=== PATIENT | male | born 1960 ===

== ENCOUNTER 2017-04-28 11:06 | Emergency (ER) | payer MEDICARE, MEDICAID ==
[2017-04-28 11:20] VITALS: BP 134/87
--- NOTE | 2017-04-28 11:58 | UC ---
Syncope/New Syncope HPI - HPI Summary HPI Summary: 56 yo male presents to [facility] after a faint Faint occurred during a paroxysm of coughing Lost postural tone and was out for 2-3 second was able to get up under his own power NO CP/SOB/PALPITATIONS he is currently on day # 4 of zithromax for bronchitis also on nebs and prednisone currently has no complaints and has not had any coughing here - History Of Current Complaint Chief Complaint: UCGeneralIllness Stated Complaint: BLACKED OUT Time Seen by Provider: 04/28/17 11:20 Hx Obtained From: Patient Onset/Duration: Sudden Onset Activity At Onset: Other - had just gotten out of his vehicle and started coughing violently Timing: Seconds - <3 Frequency: Episodes x___ - 1, Episodes Lasting ____ (in Mins/Days/Weeks/Years) - less than 3 Context: Witnessed Associated Head Trauma: No Pain Intensity: 0 Pain Scale Used: 0-10 Numeric Aggravating Factor(s): Other - occurred while coughing - Risk Factors Cardiac Risk Factors: Hypertension, Smoking, Family History Dysrhythmia Risk Factors: Age Greater Than 45 - Allergies/Home Medications Allergies/Adverse Reactions: Allergies Allergy/AdvReac Type Severity Reaction Status Date / Time No Known Allergies Allergy Verified 04/28/17 11:11 Home Medications: Home Medications Azithromycin TAB* [Zithromax TAB (Z-EDSON) 250 mg #6 tabs] 250 mg PO DAILY [History Confirmed 04/28/17] Bp Med 1 tab PO DAILY 04/28/17 [History] Cholesterol Med 1 tab PO DAILY 04/28/17 [History] Cough Medication PRN 04/28/17 [History] predniSONE TAB* [Deltasone TAB*] 1 mg PO DAILY 04/28/17 [History Confirmed 04/28] PMH/Surg Hx/FS Hx/Imm Hx Previously Healthy: Yes Endocrine History: Dyslipidemia Cardiovascular History: Hypertension Respiratory History: Bronchitis, Pneumonia - Surgical History Surgical History: None - Family History Known Family History: Positive: Cardiac Disease, Hypertension - Social History Alcohol Use: None Substance Use Type: None Smoking Status (MU): Heavy Every Day Tobacco Smoker Type: Cigarettes Amount Used/How Often: 1 pack daily Review of Systems Constitutional: Other - syncopal episode Skin: Negative Eyes: Negative ENT: Negative Respiratory: Cough Cardiovascular: Negative Gastrointestinal: Negative Genitourinary: Negative Motor: Negative Neurovascular: Negative Musculoskeletal: Negative Neurological: Negative Psychological: Negative All Other Systems Reviewed And Are Negative: Yes Physical Exam Triage Information Reviewed: Yes Appearance: Well-Appearing, No Pain Distress, Well-Nourished Vital Signs: Initial Vital Signs Temp 98.1 F 04/28/17 11:15 Pulse 66 04/28/17 11:15 Resp 18 04/28/17 11:15 BP 134/87 04/28/17 11:15 Pulse Ox 98 04/28/17 11:15 Vital Signs Reviewed: Yes Eye Exam: Normal Eyes: Positive: Conjunctiva Clear ENT: Positive: Hearing grossly normal. Negative: Nasal congestion, Nasal drainage, Tonsillar exudate, Trismus, Muffled/hoarse voice Neck: Positive: Supple, Nontender, No Lymphadenopathy Respiratory: Positive: Lungs clear, Normal breath sounds, No respiratory distress, No accessory muscle use Cardiovascular: Positive: RRR, No Murmur. Negative: Tachycardia, Bradycardia Musculoskeletal: Positive: ROM Intact, No Edema Neurological: Positive: Alert Psychological Exam: Normal Skin Exam: Normal Diagnostics - EKG Cardiac Rate: NL Cardiac Rhythm: Sinus: Normal Ectopy: None ST Segment: Normal Syncope Course/Dx - Course Course Of Treatment: no prolonged QT. pt refuses to go to the ER for further evaluation. Aware of risks of declining further workup including cardiac/ respiratory distress - Differential Dx/Diagnosis Provider Diagnoses: syncope. suspect post tussive syncope Discharge - Discharge Plan Condition: Improved Disposition: AGAINST MEDICAL ADVICE Patient Education Materials: Syncope (ED) Referrals: Adrien Carvalho PA [Physician Squadron Worker] - 1 Day Additional Instructions: Your EKG and vital signs were normal I suspect you had cough syncope (coughing caused an increase in your inter- thoracic cavity pressure and led to you passing out) Due to your cardiac risk factors I have suggested you go to the ER. If you change your mind go there at any time. I suggest you see your primary care provider tomorrow and not work until seen.
== END 2017-04-28 12:01 | disposition left against medical advice (07) ==
LOC: UCCORT 11:06
DX: R55 Syncope and collapse (principal); I10 Essential (primary) hypertension; E78.5 Hyperlipidemia, unspecified; Z72.0 Tobacco use; J40 Bronchitis, not specified as acute or chronic; Z53.20 Procedure and treatment not carried out because of patient's decision for unspecified reasons
CPT/HCPCS: 93005; 99211; G0463

== ENCOUNTER 2017-12-09 07:01 | Emergency (ER) | payer MEDICARE, MEDICAID ==
[2017-12-09 07:19] VITALS: BP 127/74
[2017-12-09] MEDS ORDERED: Albuterol/Ipratropium NEB.SOL* Albuterol 2.5 MG/Ipratropium 0.5 MG 3 ML INH ONE (07:30)
[2017-12-09] MEDS ORDERED: predniSONE TAB* 20 MG PO ONE (07:30)
--- NOTE | 2017-12-09 07:33 | ED ---
Respiratory - HPI Summary HPI Summary: 57 yr old male with coughing white sputum for about three weeks, persistent post nasal drip and sinus pressure. She has had repeated fever, chills feeling. The patient feels like he has pneumonia again. He does smoke a pack of cigarettes a day. No other complaints. - History of Current Complaint Chief Complaint: UCRespiratory Stated Complaint: SWEATS/CHILLS COUGH Time Seen by Provider: 12/09/17 07:13 - Allergy/Home Medications Allergies/Adverse Reactions: Allergies Allergy/AdvReac Type Severity Reaction Status Date / Time No Known Allergies Allergy Verified 12/09/17 07:19 Home Medications: Home Medications Aspirin [Aspirin 81 MG TAB] 81 mg PO QAM 12/09/17 [History Confirmed 12/09/17] Cough Med With Codeine 1 dose PO Q5H PRN 12/09/17 [History Confirmed 12/09/17] PMH/Surg Hx/FS Hx/Imm Hx Cardiovascular History: Reports: Hx Hypertension - Surgical History Hx Anesthesia Reactions: No Infectious Disease History: No Infectious Disease History: Denies: Traveled Outside the [place] in Last 30 Days - Family History Known Family History: Positive: Cardiac Disease, Hypertension - Social History Occupation: Employed Full-time Alcohol Use: None Substance Use Type: Reports: Excessive Caffeine Smoking Status (MU): Heavy Every Day Tobacco Smoker Type: Cigarettes Amount Used/How Often: 1 pack daily Review of Systems Positive: Fever, Chills Positive: Nasal Discharge Positive: Cough All Other Systems Reviewed And Are Negative: Yes Physical Exam Triage Information Reviewed: Yes Vital Signs On Initial Exam: Initial Vitals Temp Pulse Resp BP Pulse Ox 97.2 F 74 20 127/74 99 12/09/17 07:09 12/09/17 07:09 12/09/17 07:09 12/09/17 07:09 12/09/17 07:09 Vital Signs Reviewed: Yes Appearance: Positive: Well-Appearing, No Pain Distress Skin: Positive: Skin Color Reflects Adequate Perfusion Eyes: Positive: EOMI ENT: Positive: Normal ENT inspection, Pharynx normal, Sinus tenderness Neck: Positive: Nontender Respiratory/Lung Sounds: Positive: Decreased Breath Sounds Cardiovascular: Positive: RRR. Negative: Murmur Abdomen Description: Positive: Nontender Musculoskeletal: Positive: Normal, Strength/ROM Intact Neurological: Positive: Sensory/Motor Intact, Alert, Oriented to Person Place, Time, CN Intact II-III Psychiatric: Positive: Normal AVPU Assessment: Alert - [place] Coma Scale Best Eye Response: 4 - Spontaneous Best Motor Response: 6 - Obeys Commands Best Verbal Response: 5 - Oriented Diagnostics - Vital Signs Vital Signs Temp Pulse Resp BP Pulse Ox 12/09/17 07:09 97.2 F 74 20 127/74 99 - Laboratory Lab Statement: Any lab studies that have been ordered have been reviewed, and results considered in the medical decision making process. Disposition - Course Course Of Treatment: 57 yr old male with neg chest xray but persistent white sputum and also sinus drainage and pressure. Will Rx with Augmentin, and for cough put on mdi and also steroids. - Diagnoses Provider Diagnoses: Sinusitis Discharge - Discharge Plan Condition: Good Disposition: HOME Prescriptions: Albuterol HFA INHALER* [Ventolin HFA Inhaler*] 1 - 2 puff INH Q6H PRN #1 mdi PRN Reason: Cough Amoxicillin/Clavulanate TAB* [Augmentin TAB 875*] 875 mg PO BID #20 tab predniSONE TAB* [Deltasone TAB*] 40 mg PO DAILY #6 tab Referrals: Esthela Medrano [Primary Care Provider] - 2 Days
--- NOTE | 2017-12-09 08:16 | RAD ---
HISTORY: Chest pain COMPARISONS: May 17, 2011 VIEWS: 4: Frontal dual-energy and lateral views of the chest. FINDINGS: CARDIOMEDIASTINAL SILHOUETTE: The cardiomediastinal silhouette is normal. JOSE: The jose are normal. PLEURA: The costophrenic angles are sharp. No pleural abnormalities are noted. LUNG PARENCHYMA: The lungs are clear. ABDOMEN: The upper abdomen is clear. There is no subphrenic gas. BONES AND SOFT TISSUES: No bone or soft tissue abnormalities are noted. OTHER: None. IMPRESSION: NO ACTIVE CARDIOPULMONARY DISEASE.
== END 2017-12-09 08:35 | disposition home or self-care (01) ==
LOC: UCCORT 07:01
DX: J32.9 Chronic sinusitis, unspecified (principal); I10 Essential (primary) hypertension; Z79.82 Long term (current) use of aspirin; F17.210 Nicotine dependence, cigarettes, uncomplicated
CPT/HCPCS: 71046; 99212; A9270-GY; G0463; J7512